=== PATIENT | female | born 1935 | race Caucasian/White ===

== ENCOUNTER 2022-07-25 10:37 | Outpatient (REF) | payer MEDICARE, MEDICAID, SELFPAY ==
--- NOTE | 2022-07-25 12:59 | MHC.AU.HA3 ---
Hearing Instrument Follow-Up- Binaural Date of Visit: 07/25/22 Right Ear: Make, Model, Color, Serial Number: Oticon OPN 2 BTE PP SN: [id number] Color: Chroma Beige Nut Processing Supervisor Repair Warranty: 08/20/2022 Nut Processing Supervisor Loss and Damage Warranty: 08/20/2022 Battery Size: 13 Earmold/Dome/CShell/SlimTip:Silicone skeleton Dispensed By: [facility] ([email or web address] via [employer] Date of Fittin08/06/2019 Left Ear: Make, Model, Color, Serial Number: Oticon OPN 2 BTE PP SN: [id number] Color: Chroma Beige Nut Processing Supervisor Repair Warranty: 08/20/2022 Nut Processing Supervisor Loss and Damage Warranty: 08/20/2022 Battery Size: 13 Earmold/Dome/CShell/SlimTip: Silicone skeleton Dispensed By: [facility] ([email or web address]) via [employer] Date of Fittin08/06/2019 Follow-Up Summary: Berkley purchased new hearing aids through a Hearing Care Consumer Agent Portal (CAP) provider in August 2019. She wanted her hearing aids sent to the rafter cutting machine operator for a clean/check prior to the warranty expiring. Explained there would be a fee as she did not purchase the hearing aids through [facility]. Layton was very upset and could not understand why there would be a fee as the warranty has not . Discussed the difference between the rafter cutting machine operator warranty and service agreements through different audiology clinics. Advised that she could go back to clinic where she purchased the hearing aids; however, per the original [employer] delivery receipt, servicing is only provided for 1-year with the original provider. Subsequently, that clinic reportedly said they can no longer service her hearing aids due to her Medicaid insurance. However, her Medicaid insurance does not have any hearing aid benefits. Reviewed [facility] [employer]. Quoted $90.00 to have hearing aids sent out to rafter cutting machine operator for in-warranty check, molds cleaned and retubed, and hearing aids reprogrammed to today's audio using real ear measurements. Berkley approved. Transferred her ear molds to her old Oticon Alicia BTE hearing aids to use in the meantime. Sent OPN 2 BTEs to [facility]. Recommendations: Patient will be contacted when materials have arrived. Recommendations (Other): When hearing aids return for repair, an appointment should be scheduled for cleaning/tubing change of ear molds and full reprogramming using real ear measurements. Berkley will owe $90.00 at that appointment. Diagnosis Code(s): Primary Diagnosis: H90.3 Bilateral Sensorineural Hearing Loss Signature: Provider: Aislinn Estrada, [facility]
== END 2022-07-25 10:38 | disposition home or self-care (01) ==
LOC: HO.SH 10:37
PROVIDERS: Visit Provider Family Medicine
DX: Z01.118 Encounter for examination of ears and hearing with other abnormal findings (principal); H90.3 Sensorineural hearing loss, bilateral
CPT/HCPCS: 92557

== ENCOUNTER 2022-08-14 13:50 | Outpatient (REF) | payer SELFPAY ==
--- NOTE | 2022-08-14 15:39 | MHC.AU.HA3 ---
Hearing Instrument Follow-Up- Binaural Date of Visit: 08/14/22 Right Ear: Make, Model, Color, Serial Number: Oticon OPN 2 BTE PP SN: [id number] (old SN: [id number]) Color: Chroma Beige Painter Structural Steel Repair Warranty: 08/20/2022 Painter Structural Steel Loss and Damage Warranty: 08/20/2022 Battery Size: 13 Earmold/Dome/CShell/SlimTip:Skeleton Dispensed By: [facility] ([employer] via [employer] Date of Fittin08/06/2019 Left Ear: Make, Model, Color, Serial Number: Oticon OPN 2 BTE PP SN: [id number] (old SN: [id number]) Color: Chroma Beige Painter Structural Steel Repair Warranty: 08/20/2022 Painter Structural Steel Loss and Damage Warranty: 08/20/2022 Battery Size: 13 Earmold/Dome/CShell/SlimTip: Skeleton Dispensed By: [facility] ([employer] via [employer] Date of Fittin08/06/2019 Follow-Up Summary: Berkley returned to cloth picker her repaired hearing aids. Cleaned her ear molds and replaced tubing. Reprogrammed hearing aids using real ear measures with good match to target through 2kHz. Berkley reported that it is difficult to make a good judgement of sound quality in the office. She needs time to use the hearing aids in her daily interactions to determine how the programming adjustments affected the overall sound quality. Advised to call within 2-3 weeks if further adjustments are needed. Afterwards, additional fees will apply. *Note: Hearing aid SNs are read in Genie as noted above; however, on tag in hearing aids the LEFT tag reads [id number] and RIGHT tag reads [id number] Recommendations: Please contact our clinic with any questions or concerns. Patient will call if problems persist. Recommendations (Other): Paid $90.00 Diagnosis Code(s): Primary Diagnosis: H90.3 Bilateral Sensorineural Hearing Loss Signature: Provider: Aislinn Estrada, [facility]
== END 2022-08-14 13:51 | disposition home or self-care (01) ==
LOC: HO.HAP 13:50
PROVIDERS: Visit Provider Family Medicine
DX: Z46.1 Encounter for fitting and adjustment of hearing aid (principal); H90.3 Sensorineural hearing loss, bilateral
CPT/HCPCS: V5020

== ENCOUNTER 2022-08-15 14:17 | Outpatient (REF) | payer SELFPAY ==
--- NOTE | 2022-08-15 14:45 | MHC.AU.HA3 ---
Hearing Instrument Follow-Up- Binaural Date of Visit: 08/15/22 Right Ear: Make, Model, Color, Serial Number: Oticon OPN 2 BTE PP SN: [id number] (old SN: [id number]) Color: Chroma Beige Assistant Activities Director Repair Warranty: 08/20/2022 Assistant Activities Director Loss and Damage Warranty: 08/20/2022 Battery Size: 13 Earmold/Dome/CShell/SlimTip:Skeleton Dispensed By: [facility] via [employer] Date of Fittin08/06/2019 Left Ear: Make, Model, Color, Serial Number: Oticon OPN 2 BTE PP SN: [id number] (old SN: [id number]) Color: Chroma Beige Assistant Activities Director Repair Warranty: 08/20/2022 Assistant Activities Director Loss and Damage Warranty: 08/20/2022 Battery Size: 13 Earmold/Dome/CShell/SlimTip: Skeleton Dispensed By: [facility] via [employer] Date of Fittin08/06/2019 Follow-Up Summary: Berkley returned as she thought her battery doors were stuck and was hesitant to force them open. Reinstructed how to open the battery doors and explained that the doors do stop, for the off position. They just need to be pulled further to fully open. Berkley does not remember the doors being as difficult to open prior to sending the hearing aids for repair. Advised hinges will likely loosen over time. Some difficulty opening the doors in office but better with practice. Berkley also reported that she does not have feedback regarding the programming changes at the moment, as she has not had time to use the hearing aids in different listening environments. Recommendations: Please contact our clinic with any questions or concerns. Diagnosis Code(s): Primary Diagnosis: H90.3 Bilateral Sensorineural Hearing Loss Signature: Provider: Aislinn Estrada, [facility]
== END 2022-08-15 14:18 | disposition home or self-care (01) ==
LOC: HO.HAP 14:17
PROVIDERS: Visit Provider Family Medicine
DX: Z13.89 Encounter for screening for other disorder (principal)